=== PATIENT | female | born 1990 | race Caucasian/White ===

== ENCOUNTER → 2023-01-23 | Outpatient (CLI) | payer BC ==
[~2023-01-23] VITALS: Ht 167.6 cm; Wt 77.8 kg
[2023-01-23 10:22] VITALS: BP 109/84; PULSE 78; TEMP 97.6
[2023-01-23 10:48] VITALS: BP 118/67; PULSE 77
[2023-01-23 10:50] VITALS: BP 106/70; PULSE 71
[2023-01-23 10:55] VITALS: BP 109/82; PULSE 69
[2023-01-23 11:00] VITALS: BP 116/75; PULSE 75
[2023-01-23 11:05] VITALS: BP 108/67; BP 111/76; PULSE 59; PULSE 73
== END ==
LOC: COL.RAD 10:00
DX: R79.89 Other specified abnormal findings of blood chemistry (principal); R76.8 Other specified abnormal immunological findings in serum; R74.8 Abnormal levels of other serum enzymes
CPT/HCPCS: 32108